=== PATIENT | male | born 1985 | race Caucasian/White ===

== ENCOUNTER 2019-08-28 21:15 | Emergency (ER) | payer OTHER ==
[~2019-08-28] VITALS: Ht 190.5 cm; Wt 109.8 kg
[2019-08-28 21:22] VITALS: BP 136/76
== END 2019-08-28 21:47 | disposition home or self-care (01) ==
LOC: ER 21:20
DX: F10.20 Alcohol dependence, uncomplicated (principal); F32.9 Major depressive disorder, single episode, unspecified; Y90.9 Presence of alcohol in blood, level not specified